=== PATIENT | female | born 1940 | race Caucasian/White ===

== ENCOUNTER 2016-11-24 14:18 | Outpatient (CLI) | payer MEDICARE, OTHER | END 2016-11-24 14:19 | disposition home or self-care (01) | DX: Z00.00 Encounter for general adult medical examination without abnormal findings (principal); E78.5 Hyperlipidemia, unspecified; E55.9 Vitamin D deficiency, unspecified ==

== ENCOUNTER 2016-12-19 17:52 | Observation (INO) | payer MEDICARE, OTHER ==
[2016-12-19] MEDS ORDERED: ALBUTEROL 8 GM INHALER INH STA (19:53)
[2016-12-19] MEDS ORDERED: ALBUTEROL 8 GM INHALER INH ONE (19:58)
[2016-12-19] MEDS ORDERED: SODIUM CHLORIDE 0.9% 1,000 ML IV ONE ×2 (20:00→21:00)
[2016-12-19] MEDS ORDERED: IPRATROPIUM/ALBUTEROL 3 ML NEB INH STA (20:18)
[2016-12-19] MEDS ORDERED: IPRATROPIUM/ALBUTEROL 3 ML NEB INH ONE (20:33)
[2016-12-19] MEDS ORDERED: diltiaZEM INJ 5 MG/ML VIAL IVP STA (21:23)
[2016-12-19] MEDS ORDERED: diltiaZEM INJ 5 MG/ML VIAL ONE (21:35)
[2016-12-19] MEDS ORDERED: ONDANSETRON 4 MG/2 ML VIAL IVP PRN (23:19)
[2016-12-19] MEDS ORDERED: ACETAMINOPHEN 325 MG TABLET PO PRN (23:19)
[2016-12-19] MEDS ORDERED: oxyCODONE 5 MG TABLET PO PRN (23:19)
[2016-12-19] MEDS ORDERED: ONDANSETRON ODT 4 MG TABLET TL PRN (23:19)
[2016-12-19] MEDS ORDERED: diltiaZEM INJ 5 MG/ML VIAL IVP PRN (23:28)
[2016-12-19] MEDS ORDERED: WARFARIN 5 MG TABLET PO SCH (23:45)
[2016-12-20] MEDS ORDERED: methylPREDNISolone SUCCINATE 40 MG/ML VIAL IVP SCH (03:00)
[2016-12-20] MEDS ORDERED: AZITHROMYCIN 250 MG TABLET PO SCH (04:00)
[2016-12-20] MEDS: SODIUM CHLORIDE FLUSH 0.9% 10 ML SYRINGE IVP PRN ×2 (04:02→21:15)
[2016-12-20] MEDS: SODIUM CHLORIDE FLUSH 0.9% 10 ML SYRINGE IVP SCH ×3 (06:03→21:03)
[2016-12-20] MEDS ORDERED: METOPROLOL SUCCINATE 25 MG TABLET PO SCH (09:00)
[2016-12-20] MEDS: METOPROLOL SUCCINATE 25 MG TABLET PO SCH (09:31)
[2016-12-20] MEDS: POLYETHYLENE GLYCOL 3350 17 GM PACKET PO SCH (09:31)
[2016-12-20] MEDS: MULTIVITAMIN 10 ML, THIAMINE INJ 100 MG, FOLIC ACID INJ 1 MG in SODIUM CHLORIDE 0.9% 1,... IV SCH (09:58)
[2016-12-20] MEDS ORDERED: MULTIVITAMIN 10 ML, FOLIC ACID INJ 1 MG, THIAMINE INJ 100 MG, MAGNESIUM SULFATE 2 GM in... IV SCH ×5 (10:00)
[2016-12-20] MEDS ORDERED: MAGNESIUM SULFATE 2 GRAM 50 ML IV ONE (12:00)
[2016-12-20] MEDS: methylPREDNISolone SUCCINATE 40 MG/ML VIAL IVP SCH ×2 (15:22→21:03)
[2016-12-20] MEDS: guaiFENesin/DEXTROMETHORPHAN 10 ML UDC PO PRN ×2 (16:24→23:58)
[2016-12-20] MEDS ORDERED: WARFARIN 5 MG TABLET PO SCH (20:00)
[2016-12-20] MEDS: BENZONATATE 100 MG CAPSULE PO PRN (21:02)
[2016-12-21] MEDS: SODIUM CHLORIDE FLUSH 0.9% 10 ML SYRINGE IVP SCH (06:00)
[2016-12-21] MEDS ORDERED: AZITHROMYCIN 250 MG TABLET PO SCH (09:00)
[2016-12-21] MEDS: MULTIVITAMIN 10 ML, THIAMINE INJ 100 MG, FOLIC ACID INJ 1 MG in SODIUM CHLORIDE 0.9% 1,... IV SCH (09:36)
[2016-12-21] MEDS: METOPROLOL SUCCINATE 25 MG TABLET PO SCH (09:52)
[2016-12-21] MEDS: POLYETHYLENE GLYCOL 3350 17 GM PACKET PO SCH (09:53)
[2016-12-21] MEDS: BENZONATATE 100 MG CAPSULE PO PRN (09:54)
[2016-12-21] MEDS: guaiFENesin/DEXTROMETHORPHAN 10 ML UDC PO PRN (12:25)
== END 2016-12-21 13:20 | disposition home or self-care (01) ==
DX: I48.91 Unspecified atrial fibrillation (principal); I10 Essential (primary) hypertension; F10.20 Alcohol dependence, uncomplicated; J06.9 Acute upper respiratory infection, unspecified; E87.1 Hypo-osmolality and hyponatremia; E87.8 Other disorders of electrolyte and fluid balance, not elsewhere classified; Y90.0 Blood alcohol level of less than 20 mg/100 ml
CPT/HCPCS: 36415; 71020; 80048; 80053; 81001; 83605; 83690; 83735; 83880; 84100; 84443; 84484; 85025; 85610; 86615; 87040; 87275; 87276; 87801; 93005; 93010; 93306; 94640; 96361; 96365; 96367; 96375; 96376; 99284; 99285; A9270; G0378; G0480; J3411; J7620

== ENCOUNTER 2016-12-23 13:55 | Outpatient (CLI) | payer MEDICARE, OTHER | END 2016-12-23 13:56 | disposition home or self-care (01) | DX: I48.91 Unspecified atrial fibrillation (principal) ==

== ENCOUNTER 2016-12-25 10:14 | Outpatient (CLI) | payer MEDICARE, OTHER | END 2016-12-25 10:15 | disposition home or self-care (01) | DX: I48.91 Unspecified atrial fibrillation (principal); E03.9 Hypothyroidism, unspecified ==

== ENCOUNTER 2016-12-25 14:46 | Outpatient (CLI) | payer MEDICARE, OTHER | END 2016-12-25 14:47 | disposition home or self-care (01) | DX: I48.91 Unspecified atrial fibrillation (principal) ==

== ENCOUNTER 2016-12-28 09:49 | Outpatient (CLI) | payer MEDICARE, OTHER | END 2016-12-28 09:50 | disposition home or self-care (01) | DX: I48.91 Unspecified atrial fibrillation (principal) ==

== ENCOUNTER 2016-12-31 11:32 | Outpatient (CLI) | payer MEDICARE, OTHER | END 2016-12-31 11:33 | disposition home or self-care (01) | DX: I48.91 Unspecified atrial fibrillation (principal) ==

== ENCOUNTER 2017-01-04 14:04 | Outpatient (CLI) | payer MEDICARE, OTHER | END 2017-01-04 14:05 | disposition home or self-care (01) | LOC: LAB.S 14:04 | PROVIDERS: ATTEND Nurse Practitioner Family | DX: I48.91 Unspecified atrial fibrillation (principal) | CPT/HCPCS: 85610 ==

== ENCOUNTER 2017-01-05 13:32 | Outpatient (CLI) | payer MEDICARE, OTHER | END 2017-01-05 13:33 | disposition home or self-care (01) | DX: R05 Cough (principal) ==

== ENCOUNTER 2017-01-06 10:30 | Outpatient (CLI) | payer MEDICARE, OTHER | END 2017-01-06 10:31 | disposition home or self-care (01) | DX: I48.91 Unspecified atrial fibrillation (principal); Z13.220 Encounter for screening for lipoid disorders ==

== ENCOUNTER 2017-01-07 11:21 | Outpatient (CLI) | payer MEDICARE, OTHER | END 2017-01-07 11:22 | disposition home or self-care (01) | DX: I48.91 Unspecified atrial fibrillation (principal) ==

== ENCOUNTER 2017-01-12 11:10 | Outpatient (CLI) | payer MEDICARE, OTHER | END 2017-01-12 11:11 | disposition home or self-care (01) | DX: I48.91 Unspecified atrial fibrillation (principal) ==

== ENCOUNTER 2017-01-21 15:01 | Outpatient (CLI) | payer MEDICARE, OTHER | END 2017-01-21 15:02 | disposition home or self-care (01) | DX: Z12.31 Encounter for screening mammogram for malignant neoplasm of breast (principal); Z80.3 Family history of malignant neoplasm of breast ==

== ENCOUNTER 2017-03-25 12:48 | Outpatient (CLI) | payer MEDICARE, OTHER ==
[2017-03-25 13:10] LABS: BASOPHILS % (AUTO) 0.9 %; EOSINOPHILS # (AUTO) 0.2 10^3/uL (0.0-0.7); HGB - HEMOGLOBIN 11.2 g/dL (12.0-16.0); LYMPHOCYTES # (AUTO) 1.7 10^3/uL (1.5-3.5); LYMPHOCYTES % (AUTO) 39.7 %; MEAN CORPUSCULAR HEMOGLOBIN 31.9 pg (27.0-31.0); MEAN PLATELET VOLUME 7.5 fL (7.9-10.8); MONOCYTES # (AUTO) 0.5 10^3/uL (0.0-1.0); MONOCYTES % (AUTO) 11.5 %; NEUTROPHILS # (AUTO) 1.9 10^3/uL (1.5-6.6); NEUTROPHILS % (AUTO) 43.9 %; RED BLOOD COUNT 3.51 10^6/uL (4.20-5.40); RED CELL DISTRIBUTION WIDTH 12.7 % (12.0-15.0); UNCORRECTED WHITE BLOOD COUNT 4.4 x10^3/uL; WHITE BLOOD COUNT 4.4 x10^3/uL (4.8-10.8)
[2017-03-25 13:17] LABS: CALCIUM 9.1 mg/dL (8.5-10.3); CREATININE 0.8 mg/dL (0.4-1.0); POTASSIUM 4.1 mmol/L (3.5-5.0)
[2017-03-25 13:25] LABS: INR 1.2 (0.8-1.2); PT - PROTHROMBIN TIME 13.4 secs (9.9-12.6)
== END 2017-03-25 12:49 | disposition home or self-care (01) ==
LOC: LAB 12:48
PROVIDERS: ATTEND Internal Medicine Cardiovascular Disease
DX: I50.9 Heart failure, unspecified (principal)
CPT/HCPCS: 36415; 80048; 85025; 85610

== ENCOUNTER 2017-04-01 11:08 | Outpatient (CLI) | payer MEDICARE, OTHER ==
[2017-04-01 17:58] LABS: CALCIUM 9.1 mg/dL (8.5-10.3); CREATININE 0.7 mg/dL (0.4-1.0); POTASSIUM 4.1 mmol/L (3.5-5.0)
== END 2017-04-01 11:09 | disposition home or self-care (01) ==
LOC: LAB.F 11:08
PROVIDERS: ATTEND Internal Medicine Cardiovascular Disease
DX: I48.0 Paroxysmal atrial fibrillation (principal)
CPT/HCPCS: 36415; 80048; 83880

== ENCOUNTER 2017-04-02 13:53 | Outpatient (CLI) | payer MEDICARE, OTHER ==
[2017-04-02 18:17] LABS: PT - PROTHROMBIN TIME 34.2 secs (9.9-12.6)
== END 2017-04-02 13:54 | disposition home or self-care (01) ==
LOC: LAB.F 13:53
PROVIDERS: ATTEND Internal Medicine Cardiovascular Disease
DX: I48.0 Paroxysmal atrial fibrillation (principal)
CPT/HCPCS: 36415; 85610

== ENCOUNTER 2017-04-14 08:00 | Outpatient (CLI) | payer MEDICARE, OTHER ==
[2017-04-14 12:39] LABS: INR 4.1 (0.8-1.2)
== END 2017-04-14 08:01 | disposition home or self-care (01) ==
LOC: LAB.F 08:00
PROVIDERS: ATTEND Internal Medicine Cardiovascular Disease
DX: I48.0 Paroxysmal atrial fibrillation (principal)
CPT/HCPCS: 36415; 85610

== ENCOUNTER 2017-04-21 11:07 | Outpatient (CLI) | payer MEDICARE, OTHER ==
[2017-04-21 18:36] LABS: INR 3.3 (0.8-1.2); PT - PROTHROMBIN TIME 37.9 secs (9.9-12.6)
== END 2017-04-21 11:08 | disposition home or self-care (01) ==
LOC: LAB.F 11:07
PROVIDERS: ATTEND Internal Medicine Cardiovascular Disease
DX: I48.0 Paroxysmal atrial fibrillation (principal)
CPT/HCPCS: 36415; 85610

== ENCOUNTER 2017-05-03 15:09 | Outpatient (CLI) | payer MEDICARE, OTHER ==
[2017-05-03 19:50] LABS: INR 3.3 (0.8-1.2); PT - PROTHROMBIN TIME 38.3 secs (9.9-12.6)
== END 2017-05-03 15:10 | disposition home or self-care (01) ==
LOC: LAB.F 15:09
PROVIDERS: ATTEND Internal Medicine Cardiovascular Disease
DX: I48.0 Paroxysmal atrial fibrillation (principal)
CPT/HCPCS: 36415; 85610

== ENCOUNTER 2017-05-20 11:13 | Outpatient (CLI) | payer MEDICARE, OTHER ==
[2017-05-20 18:19] LABS: INR 2.1 (0.8-1.2); PT - PROTHROMBIN TIME 24.1 secs (9.9-12.6)
== END 2017-05-20 11:14 | disposition home or self-care (01) ==
LOC: LAB.F 11:13
PROVIDERS: ATTEND Internal Medicine Cardiovascular Disease
DX: I48.0 Paroxysmal atrial fibrillation (principal)
CPT/HCPCS: 36415; 85610

== ENCOUNTER 2017-06-11 11:56 | Outpatient (CLI) | payer MEDICARE, OTHER ==
[2017-06-11 13:14] LABS: PT - PROTHROMBIN TIME 63.9 secs (9.9-12.6)
[2017-06-11 13:45] LABS: INR 5.6 (0.8-1.2)
== END 2017-06-11 11:57 | disposition home or self-care (01) ==
LOC: LAB 11:56
PROVIDERS: ATTEND Internal Medicine Cardiovascular Disease
DX: I48.0 Paroxysmal atrial fibrillation (principal)
CPT/HCPCS: 36415; 85610

== ENCOUNTER 2017-06-14 08:01 | Outpatient (CLI) | payer MEDICARE, OTHER ==
[2017-06-14 11:28] LABS: INR 1.6 (0.8-1.2); PT - PROTHROMBIN TIME 17.5 secs (9.9-12.6)
== END 2017-06-14 08:02 | disposition home or self-care (01) ==
LOC: LAB.F 08:01
PROVIDERS: ATTEND Internal Medicine Cardiovascular Disease
DX: I48.0 Paroxysmal atrial fibrillation (principal)
CPT/HCPCS: 36415; 85610

== ENCOUNTER 2017-06-22 09:41 | Outpatient (CLI) | payer MEDICARE, OTHER ==
[2017-06-22 18:16] LABS: INR 2.7 (0.8-1.2); PT - PROTHROMBIN TIME 31.3 secs (9.9-12.6)
== END 2017-06-22 09:42 | disposition home or self-care (01) ==
LOC: LAB.F 09:41
PROVIDERS: ATTEND Internal Medicine Cardiovascular Disease
DX: I48.0 Paroxysmal atrial fibrillation (principal)
CPT/HCPCS: 36415; 85610

== ENCOUNTER 2017-06-25 14:38 | Outpatient (CLI) | payer MEDICARE, OTHER ==
[2017-06-25 19:15] LABS: BASOPHILS % (AUTO) 0.7 %; EOSINOPHILS # (AUTO) 0.2 10^3/uL (0.0-0.7); EOSINOPHILS % (AUTO) 4.5 %; HCT - HEMATOCRIT 40.2 % (37.0-47.0); HGB - HEMOGLOBIN 13.3 g/dL (12.0-16.0); LYMPHOCYTES # (AUTO) 1.6 10^3/uL (1.5-3.5); LYMPHOCYTES % (AUTO) 32.9 %; MEAN CORPUSCULAR HEMOGLOBIN 30.8 pg (27.0-31.0); MEAN CORPUSCULAR VOLUME 93.4 fL (81.0-99.0); MEAN PLATELET VOLUME 7.8 fL (7.9-10.8); MONOCYTES # (AUTO) 0.4 10^3/uL (0.0-1.0); MONOCYTES % (AUTO) 8.7 %; NEUTROPHILS # (AUTO) 2.6 10^3/uL (1.5-6.6); NEUTROPHILS % (AUTO) 53.2 %; NUCLEATED RED BLOOD CELLS AUTO 0.1 /100WBC; RED BLOOD COUNT 4.31 10^6/uL (4.20-5.40); RED CELL DISTRIBUTION WIDTH 15.3 % (12.0-15.0); UNCORRECTED WHITE BLOOD COUNT 4.8 x10^3/uL; WHITE BLOOD COUNT 4.8 x10^3/uL (4.8-10.8)
[2017-06-25 20:01] LABS: ALBUMIN/GLOBULIN RATIO 1.7 (1.0-2.2); BILIRUBIN,TOTAL 0.8 mg/dL (0.2-1.0); BUN - BLOOD UREA NITROGEN 10 mg/dL (6-20); CALCIUM 9.5 mg/dL (8.5-10.3); CARBON DIOXIDE - CO2 31 mmol/L (21-32); CHLORIDE 92 mmol/L (101-111); CREATININE 0.6 mg/dL (0.4-1.0); GFR - MDRD 98 (>89); GLUCOSE 87 mg/dL (70-100); SODIUM 133 mmol/L (135-145); TOTAL PROTEIN 7.8 g/dL (6.7-8.2)
== END 2017-06-25 14:39 | disposition home or self-care (01) ==
LOC: LAB.F 14:38
PROVIDERS: ATTEND Internal Medicine
DX: I48.0 Paroxysmal atrial fibrillation (principal); L30.9 Dermatitis, unspecified; R60.0 Localized edema
CPT/HCPCS: 36415; 80053; 84443; 85025

== ENCOUNTER 2017-07-08 10:26 | Outpatient (CLI) | payer MEDICARE, OTHER ==
[2017-07-08 18:00] LABS: INR 1.8 (0.8-1.2); PT - PROTHROMBIN TIME 20.2 secs (9.9-12.6)
== END 2017-07-08 10:27 | disposition home or self-care (01) ==
LOC: LAB.F 10:26
PROVIDERS: ATTEND Internal Medicine Cardiovascular Disease
DX: I48.0 Paroxysmal atrial fibrillation (principal)
CPT/HCPCS: 36415; 85610

== ENCOUNTER 2017-07-20 14:46 | Outpatient (CLI) | payer MEDICARE, OTHER ==
[2017-07-20 15:28] LABS: INR 4.4 (0.8-1.2)
== END 2017-07-20 14:47 | disposition home or self-care (01) ==
LOC: LAB 14:46
PROVIDERS: ATTEND Internal Medicine Cardiovascular Disease
DX: I48.0 Paroxysmal atrial fibrillation (principal)
CPT/HCPCS: 36415; 85610

== ENCOUNTER 2017-07-27 13:09 | Outpatient (CLI) | payer MEDICARE, OTHER ==
[2017-07-27 13:30] LABS: INR 2.3 (0.8-1.2); PT - PROTHROMBIN TIME 26.3 secs (9.9-12.6)
== END 2017-07-27 13:10 | disposition home or self-care (01) ==
LOC: LAB 13:09
PROVIDERS: ATTEND Internal Medicine Cardiovascular Disease
DX: I48.0 Paroxysmal atrial fibrillation (principal)
CPT/HCPCS: 36415; 85610

== ENCOUNTER 2017-08-10 09:56 | Outpatient (CLI) | payer MEDICARE, OTHER ==
[2017-08-10 18:12] LABS: INR 2.2 (0.8-1.2); PT - PROTHROMBIN TIME 25.1 secs (9.9-12.6)
== END 2017-08-10 09:57 | disposition home or self-care (01) ==
LOC: LAB.F 09:56
PROVIDERS: ATTEND Internal Medicine Cardiovascular Disease
DX: I48.0 Paroxysmal atrial fibrillation (principal)
CPT/HCPCS: 36415; 85610

== ENCOUNTER 2017-09-23 13:54 | Outpatient (CLI) | payer MEDICARE, OTHER ==
[2017-09-23 18:25] LABS: INR 2.8 (0.8-1.2); PT - PROTHROMBIN TIME 29.9 secs (9.9-12.6)
== END 2017-09-23 13:55 | disposition home or self-care (01) ==
LOC: LAB.F 13:54
PROVIDERS: ATTEND Internal Medicine Cardiovascular Disease
DX: I48.0 Paroxysmal atrial fibrillation (principal)
CPT/HCPCS: 36415; 85610

== ENCOUNTER 2017-10-21 14:17 | Outpatient (CLI) | payer MEDICARE, OTHER ==
[2017-10-21 19:01] LABS: INR 2.2 (0.8-1.2)
== END 2017-10-21 14:18 | disposition home or self-care (01) ==
LOC: LAB.F 14:17
PROVIDERS: ATTEND Internal Medicine Cardiovascular Disease
DX: I48.0 Paroxysmal atrial fibrillation (principal)
CPT/HCPCS: 36415; 85610

== ENCOUNTER 2017-11-19 12:38 | Outpatient (CLI) | payer MEDICARE, OTHER ==
[2017-11-19 13:06] LABS: INR 1.8 (0.8-1.2); PT - PROTHROMBIN TIME 19.7 secs (9.9-12.6)
== END 2017-11-19 12:39 | disposition home or self-care (01) ==
LOC: LAB 12:38
PROVIDERS: ATTEND Internal Medicine Cardiovascular Disease
DX: I48.0 Paroxysmal atrial fibrillation (principal)
CPT/HCPCS: 36415; 85610

== ENCOUNTER 2017-12-10 13:26 | Outpatient (CLI) | payer MEDICARE, OTHER ==
[2017-12-10 14:29] LABS: INR 2.3 (0.8-1.2); PT - PROTHROMBIN TIME 25.3 secs (9.9-12.6)
== END 2017-12-10 13:27 | disposition home or self-care (01) ==
LOC: LAB 13:26
PROVIDERS: ATTEND Internal Medicine Cardiovascular Disease
DX: I48.0 Paroxysmal atrial fibrillation (principal)
CPT/HCPCS: 36415; 85610

== ENCOUNTER 2018-02-18 09:22 | Emergency (ER) | payer MEDICARE, OTHER ==
--- NOTE | 2018-02-18 10:20 | ED Physician Documentation ---
PD HPI UPPER EXT INJURY - Stated complaint Stated Complaint: RT WRIST INJ - Chief complaint Chief Complaint: Ext Problem - History obtained from History obtained from: Patient - History of Present Illness Location: Right, Wrist Type of injury: Fall (tripped and fell; no symptoms prior to the injury.) Timing - onset: Today Timing - details: Abrupt onset, Still present Worsened by: Moving, Palpating Associated symptoms: Swelling. 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 HEENT: Tonsil/Adenoidectomy - Present Medications Home Medications: Ambulatory Orders Medication Instructions Recorded Confirmed Metoprolol Succinate [Toprol Xl] 5 mg PO DAILY #10 tablet 12/21/16 HYDROcod/ACETAM 5/325 [Powell 5/325] 1 tab PO Q6H PRN #15 tablet 02/18/18 - Allergies Allergies/Adverse Reactions: Allergies Allergy/AdvReac Type Severity Reaction Status Date / Time No Known Drug Allergies Allergy Verified 02/18/18 10:25 - Social History Does the pt smoke?: No Smoking Status: Former smoker Does the pt drink ETOH?: Yes Does the pt have substance abuse?: No PD ED PE NORMAL - Vitals Vital signs reviewed: Yes - General General: Alert and oriented X 3, No acute distress, Well developed/nourished - HEENT HEENT: Atraumatic - Neck Neck: Supple, no meningeal sign, No bony TTP, No adenopathy - Cardiac Cardiac: RRR, No murmur - Respiratory Respiratory: Clear bilaterally, Other (no chestwall tenderness) - Abdomen Abdomen: Soft, Non tender - Back Back: No CVA TTP, No spinal TTP - Derm Derm: Normal color, Warm and dry - Neuro Neuro: Alert and oriented X 3, No motor deficit, No sensory deficit, Normal speech, Other Results - Vitals Vitals: Vital Signs - 24 hr 02/18/18 02/18/1818 10:06 10:54 12:14 Temperature 36.8 C 36.6 C 36.7 C Heart Rate 83 75 Respiratory 16 18 Rate Blood Pressure 148/95 H 184/82 H 148/86 H O2 Saturation 100 99 Oxygen O2 Source Room air Procedures - Splint (location) right wrist Splint applied by: Tech Type of splint: Fiberglass Other: Patient tolerated well, No complications, Neurovascular intact, Good alignment, Other PD MEDICAL DECISION MAKING - ED course Complexity details: reviewed results, re-evaluated patient, considered differential, d/w patient Departure - Departure Disposition: 01 Home, Self Care Clinical Impression: Accidental fall Qualifiers: Encounter type: initial encounter Qualified Code(s): W19.XXXA - Unspecified fall, initial encounter Fracture, Colles, right, closed Qualifiers: Encounter type: initial encounter Qualified Code(s): S52.531A - Colles' fracture of right radius, initial encounter for closed fracture Condition: Stable Record reviewed to determine appropriate education?: Yes Instructions: ED Fx Forearm Radius Ulna No Redu Requ Follow-Up: Akash Agee MD [Provider Admit Priv/Credential] - [facility] [Provider Group] Prescriptions: HYDROcod/ACETAM 5/325 [Powell 5/325] 1 tab PO Q6H PRN #15 tablet PRN Reason: Pain Comments: Keep the splint clean and dry. Elevate rest and ice your wrist often to reduce swelling. Today call the orthopedic office for an appointment for next week and follow up with them regarding changing from splint to cast and reevaluation. Use some ibuprofen or naproxen twice daily for the next several days. Add Tylenol or hydrocodone if needed for pain. Discharge Date/Time: 02/18/18 12:14
[2018-02-18] MEDS ORDERED: traMADol 50 MG TABLET PO STA (10:26)
[2018-02-18] MEDS ORDERED: KETOROLAC 60 MG/2 ML VIAL IM STA (10:26)
--- NOTE | 2018-02-18 10:58 | XRAY Report ---
EXAM: RIGHT WRIST RADIOGRAPHY EXAM DATE: 02/18/2018 10:41 AM. CLINICAL HISTORY: Fall. Pain and swelling. Trauma. COMPARISON: None. TECHNIQUE: 4 views. FINDINGS: Bones: Bones appear demineralized. Mildly impacted large transverse distal right radial fracture is s een. No significant angulation. Joints: Degenerative changes of the right wrist. No dislocation. Soft Tissues: Soft tissue swelling. IMPRESSION: 1. Mildly largely transverse distal right radius fracture. [facility] Referring Provider Line: [phone] SITE ID: [id number]
[2018-02-18 12:19] VITALS: BP 148/86
== END 2018-02-18 12:14 | disposition home or self-care (01) ==
LOC: ED 09:22
DX: S52.531A Colles' fracture of right radius, initial encounter for closed fracture (principal); W17.89XA Other fall from one level to another, initial encounter; Z87.891 Personal history of nicotine dependence
CPT/HCPCS: 29125; 73110; 96372; 99283; A9270

== ENCOUNTER 2018-11-03 19:19 | Outpatient (CLI) | payer MEDICARE, OTHER | END 2018-11-03 19:20 | disposition short-term general hospital (02) | LOC: EMS 19:19 | PROVIDERS: ATTEND Surgery | DX: R41.82 Altered mental status, unspecified (principal) | CPT/HCPCS: A0425; A0427 ==

== ENCOUNTER 2019-07-06 08:49 | Outpatient (CLI) | payer MEDICARE, OTHER ==
[2019-07-06 17:12] LABS: BASOPHILS % (AUTO) 0.5 %; EOSINOPHILS # (AUTO) 0.1 10^3/uL (0.0-0.7); EOSINOPHILS % (AUTO) 2.1 %; HGB - HEMOGLOBIN 10.4 g/dL (12.0-16.0); LYMPHOCYTES # (AUTO) 2.5 10^3/uL (1.5-3.5); LYMPHOCYTES % (AUTO) 42.7 %; MEAN CORPUSCULAR HEMOGLOBIN 28.5 pg (27.0-31.0); MEAN CORPUSCULAR HGB CONC 31.1 g/dL (32.0-36.0); MEAN CORPUSCULAR VOLUME 91.5 fL (81.0-99.0); MEAN PLATELET VOLUME 9.9 fL (7.9-10.8); MONOCYTES # (AUTO) 0.7 10^3/uL (0.0-1.0); MONOCYTES % (AUTO) 12.1 %; NEUTROPHILS # (AUTO) 2.5 10^3/uL (1.5-6.6); NEUTROPHILS % (AUTO) 42.4 %; PLT - PLATELET COUNT 249 10^3/uL (130-450); RED BLOOD COUNT 3.65 10^6/uL (4.20-5.40); RED CELL DISTRIBUTION WIDTH 14.1 % (12.0-15.0); WHITE BLOOD COUNT 5.8 x10^3/uL (4.8-10.8)
[2019-07-06 17:43] LABS: ALBUMIN 3.9 g/dL (3.2-5.5); ALBUMIN/GLOBULIN RATIO 1.4 (1.0-2.2); ALKALINE PHOSPHATASE 56 IU/L (42-121); ALT ALANINE AMINOTRANSFERASE 14 IU/L (10-60); AST ASPARTATE AMINOTRANSFERASE 23 IU/L (10-42); BILIRUBIN,TOTAL 0.7 mg/dL (0.2-1.0); BUN - BLOOD UREA NITROGEN 16 mg/dL (6-20); CALCIUM 9.4 mg/dL (8.5-10.3); CARBON DIOXIDE - CO2 28 mmol/L (21-32); CHLORIDE 102 mmol/L (101-111); CHOLESTEROL 270 mg/dL; CREATININE 0.8 mg/dL (0.4-1.0); GFR - MDRD 70 (>89); GLUCOSE 83 mg/dL (70-100); HDL CHOLESTEROL 90 mg/dL; SODIUM 137 mmol/L (135-145); TOTAL PROTEIN 6.7 g/dL (6.7-8.2)
== END 2019-07-06 08:50 | disposition home or self-care (01) ==
LOC: LAB.S 08:49
PROVIDERS: ATTEND Registered Nurse
DX: I10 Essential (primary) hypertension (principal); I48.91 Unspecified atrial fibrillation; E03.9 Hypothyroidism, unspecified
CPT/HCPCS: 36415; 80053; 80061; 83036; 83721; 84443; 85025

== ENCOUNTER 2020-03-12 08:00 | Outpatient (CLI) | payer MEDICARE, OTHER ==
--- NOTE | 2020-03-13 09:57 | XRAY Report ---
Reason: ASTHMA, COUGH Procedure Date: 03/12/2020 Accession Number: [id number] / [id number] Procedure: WCP - Chest 2 View X-Ray CPT Code: 73457 Final Report FULL RESULT: EXAM: CHEST RADIOGRAPHY 2 VIEWS EXAM DATE: 03/12/2020. CLINICAL HISTORY: Asthma. Cough. COMPARISON: PA and lateral chest on 01/05/2017. TECHNIQUE: PA and lateral views. FINDINGS: Lungs/Pleura: Normal vasculature. The lungs are clear. No pleural fluid or pneumothorax. Mediastinum: Heart size is normal. Aortic tortuosity and atherosclerosis are unchanged. Otherwise normal mediastinal contours. Bones: The partially visualized possible right humerus appears irregularly ossified. Plate attached with multiple screws to the proximal left humerus, unchanged. Mild scoliosis and multilevel degenerative disk disease and spondylosis. Healed right rib fractures. IMPRESSION: No acute cardiopulmonary abnormality. Possible lesion in the proximal right humerus, further evaluation could be initially obtained with right humerus radiography. [facility]
== END 2020-03-12 23:59 | disposition home or self-care (01) ==
LOC: DI.WCP 08:00
PROVIDERS: ATTEND Family Medicine
DX: J45.991 Cough variant asthma (principal)
CPT/HCPCS: 71046

== ENCOUNTER 2020-03-12 12:22 | Outpatient (CLI) | payer MEDICARE, OTHER ==
[2020-03-12 17:49] LABS: HGB - HEMOGLOBIN 11.2 g/dL (12.0-16.0); MEAN CORPUSCULAR HEMOGLOBIN 28.8 pg (27.0-31.0); MEAN CORPUSCULAR HGB CONC 31.2 g/dL (32.0-36.0); MEAN CORPUSCULAR VOLUME 92.3 fL (81.0-99.0); MEAN PLATELET VOLUME 9.8 fL (7.9-10.8); RED BLOOD COUNT 3.89 10^6/uL (4.20-5.40); RED CELL DISTRIBUTION WIDTH 13.7 % (12.0-15.0); WHITE BLOOD COUNT 4.4 x10^3/uL (4.8-10.8)
[2020-03-12 18:00] LABS: CALCIUM 9.2 mg/dL (8.5-10.3); CREATININE 0.7 mg/dL (0.4-1.0)
[2020-03-12 18:08] LABS: HB2 TOTAL 11.9 g/dL; HEMOGLOBIN A1C 0.43 g/dL; HEMOGLOBIN A1C % 5.5 % (4.6-6.2)
== END 2020-03-12 23:59 | disposition home or self-care (01) ==
LOC: LAB.WCP 12:22
PROVIDERS: ATTEND Registered Nurse
DX: J45.991 Cough variant asthma (principal); Z79.899 Other long term (current) drug therapy; R06.02 Shortness of breath; I11.0 Hypertensive heart disease with heart failure; I50.20 Unspecified systolic (congestive) heart failure; I48.91 Unspecified atrial fibrillation; E03.9 Hypothyroidism, unspecified
CPT/HCPCS: 36415; 80048; 83036; 83880; 85025; 85027

== ENCOUNTER 2020-07-23 14:44 | Outpatient (CLI) | payer MEDICARE, OTHER ==
[2020-07-23 20:26] LABS: % IRON SATURATION 10 % (20-50); ALBUMIN 3.6 g/dL (3.2-5.5); ALBUMIN/GLOBULIN RATIO 1.2 (1.0-2.2); ALKALINE PHOSPHATASE 64 IU/L (42-121); ALT ALANINE AMINOTRANSFERASE 16 IU/L (10-60); AST ASPARTATE AMINOTRANSFERASE 27 IU/L (10-42); BILIRUBIN,TOTAL 0.5 mg/dL (0.2-1.0); BUN - BLOOD UREA NITROGEN 13 mg/dL (6-20); CALCIUM 8.9 mg/dL (8.5-10.3); CARBON DIOXIDE - CO2 30 mmol/L (21-32); CHLORIDE 97 mmol/L (101-111); CREATININE 0.8 mg/dL (0.4-1.0); GLUCOSE 90 mg/dL (70-100); IRON 34 ug/dL (28-170); SODIUM 135 mmol/L (135-145); TOTAL IRON BINDING CAPACITY 335 ug/dL (250-450); TOTAL PROTEIN 6.5 g/dL (6.7-8.2); TRANSFERRIN 239 mg/dL (192-382)
[2020-07-23 20:28] LABS: RHEUMATOID FACTOR NEGATIVE (Negative)
[2020-07-23 20:58] LABS: CRP - C-REACTIVE PROTEIN < 1.0 mg/dL (0-1.0)
== END 2020-07-23 14:45 | disposition home or self-care (01) ==
LOC: LAB.S 14:44
PROVIDERS: ATTEND Registered Nurse
DX: D64.9 Anemia, unspecified (principal); M25.50 Pain in unspecified joint
CPT/HCPCS: 36415; 80053; 82728; 83540; 84466; 85651; 86038; 86140; 86430

== ENCOUNTER 2022-03-05 08:40 | Outpatient (CLI) | payer MEDICARE, OTHER ==
[2022-03-05 14:43] LABS: ESTIMATED AVERAGE GLUCOSE 117 mg/dL (70-100); HEMOGLOBIN A1c% 5.7 % (4.27-6.07)
[2022-03-05 14:46] LABS: BASOPHILS # (AUTO) 0.1 10^3/uL (0.0-0.1); BASOPHILS % (AUTO) 1.2 %; EOSINOPHILS # (AUTO) 0.8 10^3/uL (0.0-0.7); EOSINOPHILS % (AUTO) 15.4 %; HCT - HEMATOCRIT 35.3 % (37.0-47.0); HGB - HEMOGLOBIN 11.5 g/dL (12.0-16.0); LYMPHOCYTES # (AUTO) 1.9 10^3/uL (1.5-3.5); LYMPHOCYTES % (AUTO) 39.3 %; MEAN CORPUSCULAR HEMOGLOBIN 31.6 pg (27.0-31.0); MEAN CORPUSCULAR HGB CONC 32.6 g/dL (32.0-36.0); MEAN PLATELET VOLUME 9.7 fL (7.9-10.8); MONOCYTES # (AUTO) 0.5 10^3/uL (0.0-1.0); MONOCYTES % (AUTO) 10.3 %; NEUTROPHILS # (AUTO) 1.7 10^3/uL (1.5-6.6); NEUTROPHILS % (AUTO) 33.6 %; PLT - PLATELET COUNT 267 10^3/uL (130-450); RED BLOOD COUNT 3.64 10^6/uL (4.20-5.40); WHITE BLOOD COUNT 4.9 x10^3/uL (4.8-10.8)
[2022-03-05 16:29] LABS: ALBUMIN 3.8 g/dL (3.2-5.5); ALBUMIN/GLOBULIN RATIO 1.5 (1.0-2.2); ALKALINE PHOSPHATASE 68 IU/L (42-121); ALT ALANINE AMINOTRANSFERASE 15 IU/L (10-60); AST ASPARTATE AMINOTRANSFERASE 23 IU/L (10-42); BILIRUBIN,TOTAL 0.5 mg/dL (0.2-1.0); BUN - BLOOD UREA NITROGEN 20 mg/dL (6-20); CALCIUM 8.9 mg/dL (8.5-10.3); CARBON DIOXIDE - CO2 30 mmol/L (21-32); CHLORIDE 96 mmol/L (101-111); CHOL/HDL RATIO 2.4 (<4.4); CHOLESTEROL 244 mg/dL; CREATININE 0.8 mg/dL (0.4-1.0); GFR - MDRD 69 (>89); GLUCOSE 75 mg/dL (70-100); HDL CHOLESTEROL 102 mg/dL; POTASSIUM 4.3 mmol/L (3.5-5.0); SODIUM 133 mmol/L (135-145); TOTAL PROTEIN 6.4 g/dL (6.7-8.2); TRIGLYCERIDES 32 mg/dL
[2022-03-07 16:08] LABS: HCV IU/ML HCV Not Detected IU/mL (.)
== END 2022-03-05 08:41 | disposition home or self-care (01) ==
LOC: LAB.S 08:40
PROVIDERS: ATTEND Internal Medicine
DX: I27.20 Pulmonary hypertension, unspecified (principal); I10 Essential (primary) hypertension; Z13.1 Encounter for screening for diabetes mellitus; Z13.220 Encounter for screening for lipoid disorders; Z11.59 Encounter for screening for other viral diseases
CPT/HCPCS: 36415; 80053; 80061; 83036; 83721; 84443; 85025; 87522

== ENCOUNTER 2023-10-15 14:52 | Outpatient (CLI) | payer MEDICARE, OTHER ==
[2023-10-15 20:12] LABS: BASOPHILS # (AUTO) 0.1 10^3/uL (0.0-0.1); BASOPHILS % (AUTO) 0.8 %; EOSINOPHILS # (AUTO) 0.6 10^3/uL (0.0-0.7); EOSINOPHILS % (AUTO) 10.5 %; HCT - HEMATOCRIT 38.7 % (37.0-47.0); HGB - HEMOGLOBIN 12.3 g/dL (12.0-16.0); LYMPHOCYTES # (AUTO) 2.4 10^3/uL (1.5-3.5); LYMPHOCYTES % (AUTO) 39.9 %; MEAN CORPUSCULAR HEMOGLOBIN 30.5 pg (27.0-31.0); MEAN CORPUSCULAR HGB CONC 31.8 g/dL (32.0-36.0); MEAN PLATELET VOLUME 9.5 fL (7.9-10.8); MONOCYTES # (AUTO) 0.5 10^3/uL (0.0-1.0); MONOCYTES % (AUTO) 9.1 %; NEUTROPHILS # (AUTO) 2.3 10^3/uL (1.5-6.6); NEUTROPHILS % (AUTO) 39.5 %; PLT - PLATELET COUNT 275 10^3/uL (130-450); RED BLOOD COUNT 4.03 10^6/uL (4.20-5.40); WHITE BLOOD COUNT 5.9 x10^3/uL (4.8-10.8)
[2023-10-15 20:55] LABS: THYROID STIMULATING HORMONE 1.17 uIU/mL (0.34-5.60)
[2023-10-15 21:30] LABS: CALCIUM 9.6 mg/dL (8.5-10.3); CREATININE 0.8 mg/dL (0.6-1.3); POTASSIUM 4.3 mmol/L (3.5-4.5)
== END 2023-10-15 14:53 | disposition home or self-care (01) ==
LOC: LAB.S 14:52
PROVIDERS: ATTEND Internal Medicine Cardiovascular Disease
DX: I48.0 Paroxysmal atrial fibrillation (principal)
CPT/HCPCS: 36415; 80048; 84443; 85025

== ENCOUNTER 2023-12-03 13:39 | Outpatient (CLI) | payer MEDICARE, OTHER | END 2023-12-03 13:40 | disposition home or self-care (01) | LOC: DI 13:39 | PROVIDERS: ATTEND Internal Medicine | DX: I48.91 Unspecified atrial fibrillation (principal); I08.1 Rheumatic disorders of both mitral and tricuspid valves | CPT/HCPCS: 93307 ==

== ENCOUNTER 2024-01-10 13:38 | Emergency (ER) | payer MEDICARE, OTHER ==
[2024-01-10 14:25] LABS: BASOPHILS % (AUTO) 0.7 %; EOSINOPHILS # (AUTO) 0.2 10^3/uL (0.0-0.7); HCT - HEMATOCRIT 36.4 % (37.0-47.0); HGB - HEMOGLOBIN 12.2 g/dL (12.0-16.0); LYMPHOCYTES # (AUTO) 1.4 10^3/uL (1.5-3.5); LYMPHOCYTES % (AUTO) 23.6 %; MEAN CORPUSCULAR HEMOGLOBIN 31.8 pg (27.0-31.0); MEAN CORPUSCULAR HGB CONC 33.5 g/dL (32.0-36.0); MEAN CORPUSCULAR VOLUME 94.8 fL (81.0-99.0); MEAN PLATELET VOLUME 8.8 fL (7.9-10.8); MONOCYTES # (AUTO) 0.6 10^3/uL (0.0-1.0); MONOCYTES % (AUTO) 9.8 %; NEUTROPHILS # (AUTO) 3.6 10^3/uL (1.5-6.6); NEUTROPHILS % (AUTO) 62.5 %; PLT - PLATELET COUNT 242 10^3/uL (130-450); RED BLOOD COUNT 3.84 10^6/uL (4.20-5.40); RED CELL DISTRIBUTION WIDTH 13.1 % (12.0-15.0); WHITE BLOOD COUNT 5.7 x10^3/uL (4.8-10.8)
--- NOTE | 2024-01-10 14:32 | XRAY Report ---
PROCEDURE: Chest 1V INDICATIONS: weakness TECHNIQUE: One view of the chest was acquired. COMPARISON: None. FINDINGS: Surgical changes and devices: Left humerus ORIF. Lungs and pleura: No pleural effusions or pneumothorax. Lungs are clear. Mediastinum: Mediastinal contours appear normal. Heart size is normal. Bones and chest wall: No suspicious bony lesions. Overlying soft tissues appear unremarkable. IMPRESSION: No acute cardiopulmonary process. Reviewed by: Aly Ma MD on 01/10/2024 2:30 PM PDT Approved by: Aly Ma MD on 01/10/2024 2:30 PM PDT Station ID: [id number]
[2024-01-10] MEDS: SODIUM CHLORIDE 0.9% 500 ML IV STA ×2 (14:40→15:56)
[2024-01-10 14:41] LABS: BILIRUBIN,URINE SMALL (NEGATIVE); GLUCOSE, URINE (UA) NEGATIVE (NEGATIVE); KETONES,URINE (UA) NEGATIVE (NEGATIVE); LEUKOCYTE ESTERASE, URINE TRACE (NEGATIVE); NITRITE,URINE POSITIVE (NEGATIVE); OCCULT BLOOD,URINE NEGATIVE (NEGATIVE); PROTEIN,URINE NEGATIVE (NEGATIVE); UROBILINOGEN,URINE 0.2 (NORMAL) E.U./dL (NORMAL)
[2024-01-10 14:41] LABS: ALBUMIN 4.2 g/dL (3.2-5.5); ALBUMIN/GLOBULIN RATIO 1.6 (1.0-2.2); BILIRUBIN,TOTAL 1.3 mg/dL (0.2-1.0); CALCIUM 9.5 mg/dL (8.5-10.3); CREATININE 0.7 mg/dL (0.6-1.3); POTASSIUM 4.3 mmol/L (3.5-4.5); TOTAL PROTEIN 6.8 g/dL (6.4-8.9)
[2024-01-10 14:44] LABS: CLARITY,URINE CLEAR (CLEAR)
[2024-01-10 14:45] LABS: TROPONIN I HIGH SENSITIVITY 9.6 ng/L (2.3-14.8)
[2024-01-10 15:01] LABS: BACTERIA,URINE Few /HPF (None Seen); SQUAMOUS EPITHELIAL CELL,UR MOD Squamous (<= Few)
--- NOTE | 2024-01-10 15:21 | ED Physician Documentation ---
History of Present Illness - Stated complaint Stated Complaint: GLF - Chief complaint Chief Complaint: Trauma Hd/Nk - History obtained from History obtained from: Patient, Family - Additonal information Additional information: Patient is an 83-year-old female presenting for evaluation of generalized weakness and a fall at home. Patient states she felt lightheaded and weak yesterday and fell down to the ground. She does not believe she hit her head or had LOC. She was unable to get off the ground for 6 to 8 hours until a family member came to check on her in the evening. Family member took her home with her fed her. This morning they report that she seemed weak so presented to the emergency department. Patient denies any complaints of pain.Denies chest pain, shortness of air, recent illness, dysuria.Patient is on Eliquis. Review of Systems Constitutional: denies: Fever Cardiac: denies: Chest pain / pressure Respiratory: denies: Dyspnea, Cough GI: denies: Abdominal Pain, Vomiting : denies: Dysuria Neurologic: reports: Generalized weakness. 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 HEENT: Tonsil/Adenoidectomy - Present Medications Home Medications: Ambulatory Orders Medication Instructions Recorded Confirmed Metoprolol Succinate [Toprol Xl] 5 mg PO DAILY #10 tablet 12/21/16 01/10/24 Furosemide 1 - 2 tab PO DAILY 03/02/19 01/10/24 Potassium Chloride 1 tab PO DAILY 03/02/19 01/10/24 Apixaban [Eliquis] 2.5 mg PO BID 01/10/24 01/10/24 Nitrofurantoin [Macrobid] 1 cap PO BID #10 cap 01/10/24 - Allergies Allergies/Adverse Reactions: Allergies Allergy/AdvReac Type Severity Reaction Status Date / Time Penicillins Allergy Rash Verified 01/10/24 13:52 - Social History Does the pt smoke?: No Smoking Status: Never smoker Does the pt drink ETOH?: Yes Does the pt have substance abuse?: No - Immunizations Immunizations are current?: Yes PD ED PE NORMAL - General General: Alert and oriented X 3, No acute distress, Well developed/nourished - HEENT HEENT: Atraumatic, PERRL, EOMI, Moist mucous membranes, Pharynx benign - Neck Neck: Supple, no meningeal sign - Cardiac Cardiac: RRR, Strong equal pulses - Respiratory Respiratory: No respiratory distress, Clear bilaterally - Abdomen Abdomen: Soft, Non tender - Derm Derm: Warm and dry - Neuro Neuro: Alert and oriented X 3, corporate staff accountant 2-12 intact, No motor deficit, No sensory de ficit, Normal speech Eye Opening: Spontaneous Motor: Obeys Commands Verbal: Oriented GCS Score: 15 Results - Vitals Vitals: Vital Signs - 24 hr 01/10/24 01/10/24 01/10/24 13:48 15:52 16:00 Temperature 36.3 C L Heart Rate 73 79 84 Respiratory 14 20 18 Rate Blood Pressure 140/105 H 140/91 H O2 Saturation 99 98 98 01/10/24 17:52 Temperature 36.7 C Heart Rate 67 Respiratory 16 Rate Blood Pressure 168/100 H O2 Saturation 97 Oxygen O2 Source Room air - EKG (time done) 1449 EKG releavant findings:: EKG personally interpreted by author of this note. Relevant findings are: Rate 64, normal sinus rhythm, no STEMI, QTc 430 - Labs Labs: Laboratory Tests 01/10/24 01/10/24 01/10/24 14:18 14:18 14:30 WBC 5.7 RBC 3.84 L Hgb 12.2 Hct 36.4 L MCV 94.8 MCH 31.8 H MCHC 33.5 RDW 13.1 Plt Count 242 MPV 8.8 Neut # (Auto) 3.6 Lymph # (Auto) 1.4 L Grayson # (Auto) 0.6 Eos # (Auto) 0.2 Baso # (Auto) 0.0 Absolute Nucleated RBC 0.00 Nucleated RBC % 0.0 Sodium 130 L Potassium 4.3 Chloride 93 L Carbon Dioxide 29 Anion Gap 8.0 BUN 19 Creatinine 0.7 Estimated GFR (MDRD) 80 L Glucose 98 Calcium 9.5 Total Bilirubin 1.3 H AST 31 ALT 17 Alkaline Phosphatase 60 Total Creatine Kinase 419 H Troponin I High Sens 9.6 Total Protein 6.8 Albumin 4.2 Globulin 2.6 Albumin/Globulin Ratio 1.6 Lipase 47 Urine Color DARK YELLOW Urine Clarity CLEAR Urine pH 6.0 Ur Specific Newcomb 1.015 Urine Protein NEGATIVE Urine Glucose (UA) NEGATIVE Urine Ketones NEGATIVE Urine Occult Blood NEGATIVE Urine Nitrite POSITIVE H Urine Bilirubin SMALL H Urine Urobilinogen 0.2 (NORMAL) Ur Leukocyte Esterase TRACE H Urine RBC 6-10 H Urine WBC 11-25 H Ur Squamous Epith Cells MOD Squamous H Urine Bacteria Few Ur Microscopic Review INDICATED Urine Culture Comments NOT INDICATED PD Medical Decision Making - ED course Complexity details: reviewed results, re-evaluated patient, d/w patient, d/w family ED course: Pt with fall at home yesterday with prolonged time on ground. On blood thinners. Denies localized pain but feeling weak. CT head negative for bleed. EKG reviewed. CBC, chemistries, troponin, UA. Labs - Na 130, Cl 93, CK 419. Given IV fluid for dehydration. UA with some markers for infection - will culture and treat given weakness and age. Chest XR without signs of pneumonia. Pt feeling at baseline here and ambulatory at baseline. Daughter with patient and comfortable with plan for discharge. Aware of need for follow up with PCP. Departure - Departure Disposition: Home, Self Care Clinical Impression: Weakness, UTI (urinary tract infection), Fall at home, Dehydration Condition: Stable Instructions: ED UTI Cystitis Female, ED Weakness UKO Prescriptions: Nitrofurantoin [Macrobid] 1 cap PO BID #10 cap Comments: Your testing today shows of dehydration as well as concerns for UTI. I have sent a prescription for an antibiotic to [facility] in [place]. Have given you the first dose this evening and you can excelsior picker this prescription in the morning. Please continue to stay hydrated. You may want to consider a safety system at home such as life alert or having a security camera inside so family members can check on you In case you ever have another fall and are unable to get up. Return to the emergency department with any new or worsening symptoms. Forms: PCP List Discharge Date/Time: 01/10/24 18:02
--- NOTE | 2024-01-10 16:41 | CT Report ---
PROCEDURE: Head WO INDICATIONS: fall on eliquis TECHNIQUE: Noncontrast 4.5 mm thick angled axial sections acquired from the foramen magnum to the vertex. For r adiation dose reduction, the following was used: automated exposure control, adjustment of mA and/or kV according to patient size. COMPARISON: None. FINDINGS: Image quality: Excellent. CSF spaces: Basal cisterns are patent. No extra-axial fluid collections. Ventricles are normal in size and shape. Brain: No midline shift. No intracranial masses or hemorrhage. Moore-white matter interface is norm al. Intracranial carotid calcifications. Age-related volume loss and small vessel ischemic change. Skull and face: Calvarium and visualized facial bones are intact, without suspicious lesions. Sinuses: Visualized sinuses and mastoids are clear. IMPRESSION: No acute intracranial pathology. Reviewed by: Sonny Fitzpatrick MD on 01/10/2024 4:39 PM PDT Approved by: Sonny Fitzpatrick MD on 01/10/2024 4:39 PM PDT Station ID: [id number]
[2024-01-10] MEDS: NITROFURANTOIN MACRO 100 MG CAPSULE PO STA (17:45)
[2024-01-10 17:56] VITALS: BP 168/100; O2SAT 97
== END 2024-01-10 18:02 | disposition home or self-care (01) ==
LOC: ED 13:38
DX: R53.1 Weakness (principal); R42 Dizziness and giddiness; W18.39XA Other fall on same level, initial encounter; E86.0 Dehydration; Z79.01 Long term (current) use of anticoagulants; Z91.81 History of falling; N39.0 Urinary tract infection, site not specified
CPT/HCPCS: 36415; 70450; 71045; 80053; 81001; 82550; 83690; 84484; 85025; 87086; 87181; 93005; 96360; 96361; 99284; A9270; 81003

== ENCOUNTER 2024-04-07 13:18 | Outpatient (CLI) | payer MEDICARE, OTHER | END 2024-04-07 23:59 | disposition EMS.NT | LOC: EMS 13:18 | DX: M79.652 Pain in left thigh (principal); W01.0XXA Fall on same level from slipping, tripping and stumbling without subsequent striking against object, initial encounter; Y92.009 Unspecified place in unspecified non-institutional (private) residence as the place of occurrence of the external cause ==

== ENCOUNTER 2024-04-07 14:33 | Emergency (ER) | payer MEDICARE, OTHER ==
--- NOTE | 2024-04-07 15:11 | ED Physician Documentation ---
History of Present Illness - Stated complaint Stated Complaint: GLF/LT LEG PX - Chief complaint Chief Complaint: Trauma Hd/Nk - History obtained from History obtained from: Patient, Family - Additonal information Additional information: She is on elquis for afib. Fell v early this AM, "trying to sit down in a chair, and it wasn't there." C/o L hip/femur pain. Can't walk Was on ground >12 hours. Thnks no head inj but isn't sure. PD PAST MEDICAL HISTORY - Past Medical History Cardiovascular: Congestive heart failure, Hypertension, Peripheral Vascular Disease, Atrial fibrillation Respiratory: Asthma Endocrine/Autoimmune: HyPOthyroidism GI: None, Chronic constipation : Frequency HEENT: None Psych: Anxiety Musculoskeletal: Other Derm: Other - Past Surgical History Past Surgical History: Yes General: Colonoscopy Ortho: Hip replacement, Shoulder arthroplasty /IRONWORKER FOREMAN: Hysterectomy HEENT: Tonsil/Adenoidectomy - Present Medications Home Medications: Ambulatory Orders Medication Instructions Recorded Confirmed Metoprolol Succinate [Toprol Xl] 5 mg PO DAILY #10 tablet 12/21/16 01/10/24 Furosemide 1 - 2 tab PO DAILY 03/02/19 01/10/24 Potassium Chloride 1 tab PO DAILY 03/02/19 01/10/24 Apixaban [Eliquis] 2.5 mg PO BID 01/10/24 01/10/24 Nitrofurantoin [Macrobid] 1 cap PO BID #10 cap 01/10/24 - Allergies Allergies/Adverse Reactions: Allergies Allergy/AdvReac Type Severity Reaction Status Date / Time Penicillins Allergy Rash Verified 04/07/24 14:50 - Social History Does the pt smoke?: No Smoking Status: Never smoker Does the pt drink ETOH?: Yes Does the pt have substance abuse?: No - Immunizations Immunizations are current?: Yes PD ED PE NORMAL - Vitals Vital signs reviewed: Yes - General General: Alert and oriented X 3, No acute distress - HEENT HEENT: PERRL - Neck Neck: Supple, no meningeal sign, No bony TTP - Cardiac Cardiac: RRR, No murmur - Respiratory Respiratory: No respiratory distress, Clear bilaterally - Abdomen Abdomen: Non tender - Derm Derm: Normal color, Warm and dry - Extremities Extremities: Other (TTP upper left femur, pain with ext rotation LLE. Can't raise leg off bed.) - Neuro Neuro: Alert and oriented X 3 Results - Vitals Vitals: Vital Signs - 24 hr 04/07/24 04/07/24 14:47 16:49 Temperature 36.6 C Heart Rate 71 92 Respiratory 16 21 Rate Blood Pressure 185/84 H 154/73 H O2 Saturation 99 100 Oxygen O2 Source Room air - Labs Labs: Laboratory Tests 04/07/24 04/07/24 04/07/24 15:24 15:24 15:24 WBC 6.7 RBC 3.72 L Hgb 11.6 L Hct 35.3 L MCV 94.9 MCH 31.2 H MCHC 32.9 RDW 12.4 Plt Count 222 MPV 9.2 Neut # (Auto) 4.8 Lymph # (Auto) 1.1 L [place] # (Auto) 0.7 Eos # (Auto) 0.1 Baso # (Auto) 0.0 Absolute Nucleated RBC 0.00 Nucleated RBC % 0.0 PT 11.6 INR 1.0 Sodium 126 L Potassium 4.2 Chloride 92 L Carbon Dioxide 29 Anion Gap 5.0 L BUN 16 Creatinine 0.6 Estimated GFR (MDRD) 96 Glucose 83 Calcium 9.3 Total Bilirubin 0.8 AST 28 ALT 14 Alkaline Phosphatase 70 Total Creatine Kinase 487 H Total Protein 6.8 Albumin 4.4 Globulin 2.4 Albumin/Globulin Ratio 1.8 - Rads (name of study) CT of the head and C-spine were without trauma. Relevant Findings:: Final report received, EMP independent interpretation of test L Hip XR Relevant Findings:: Final report received, EMP independent interpretation of test L hip ct- Relevant Findings:: Final report received, EMP independent interpretation of test PD Medical Decision Making - ED course ED course: 83-year-old woman on Eliquis for A-fib had a fall and has left hip pain. Left hip x-rays were negative, and this was followed by CT which demonstrated a nondisplaced fracture of the greater trochanter. Case discussed by phone with Dr. Hanley and confirms this is a nonoperative finding. She is not able to ambulate and her daughter does not think she can care for her at home so we will likely be boarding pending social work and placement. She wants to take her home meds for the most part. She did lay on the floor for quite some time, has a mild elevation in her CK. We will recheck it in the morning. She did receive 1 L of IV fluids for that. Departure - Departure Clinical Impression: Greater trochanter fracture Qualifiers: Encounter type: initial encounter Fracture type: closed Fracture alignment: nondisplaced Laterality: left Qualified Code(s): S72.115A - Nondisplaced fracture of greater trochanter of left femur, initial encounter for closed fracture Condition: Stable Record reviewed to determine appropriate education?: Yes Forms: PCP List
[2024-04-07 15:32] LABS: BASOPHILS % (AUTO) 0.4 %; EOSINOPHILS # (AUTO) 0.1 10^3/uL (0.0-0.7); EOSINOPHILS % (AUTO) 0.9 %; HCT - HEMATOCRIT 35.3 % (37.0-47.0); HGB - HEMOGLOBIN 11.6 g/dL (12.0-16.0); LYMPHOCYTES # (AUTO) 1.1 10^3/uL (1.5-3.5); LYMPHOCYTES % (AUTO) 16.7 %; MEAN CORPUSCULAR HEMOGLOBIN 31.2 pg (27.0-31.0); MEAN CORPUSCULAR HGB CONC 32.9 g/dL (32.0-36.0); MEAN CORPUSCULAR VOLUME 94.9 fL (81.0-99.0); MEAN PLATELET VOLUME 9.2 fL (7.9-10.8); MONOCYTES # (AUTO) 0.7 10^3/uL (0.0-1.0); MONOCYTES % (AUTO) 9.7 %; NEUTROPHILS # (AUTO) 4.8 10^3/uL (1.5-6.6); PLT - PLATELET COUNT 222 10^3/uL (130-450); RED BLOOD COUNT 3.72 10^6/uL (4.20-5.40); RED CELL DISTRIBUTION WIDTH 12.4 % (12.0-15.0); WHITE BLOOD COUNT 6.7 x10^3/uL (4.8-10.8)
[2024-04-07] MEDS: ACETAMINOPHEN 500 MG TABLET PO STA (15:41)
[2024-04-07 15:44] LABS: ALBUMIN 4.4 g/dL (3.2-5.5); ALBUMIN/GLOBULIN RATIO 1.8 (1.0-2.2); BILIRUBIN,TOTAL 0.8 mg/dL (0.2-1.0); CALCIUM 9.3 mg/dL (8.5-10.3); CREATININE 0.6 mg/dL (0.6-1.3); POTASSIUM 4.2 mmol/L (3.5-4.5); TOTAL PROTEIN 6.8 g/dL (6.4-8.9)
--- NOTE | 2024-04-07 15:45 | CT Report ---
PROCEDURE: Head WO INDICATIONS: head inj TECHNIQUE: Noncontrast 4.5 mm thick angled axial sections acquired from the foramen magnum to the vertex. For r adiation dose reduction, the following was used: automated exposure control, adjustment of mA and/or kV according to patient size. COMPARISON: 01/10/2024 FINDINGS: Image quality: Excellent. CSF spaces: Basal cisterns are patent. No extra-axial fluid collections. The ventricles are symmet edmond in size and shape. Brain: No intracranial bleeds or masses. There is cerebral volume loss for age, with resultant vent ricular and sulcal prominence. There are periventricular and deep white matter chronic small vessel ischemic changes. There is intracranial internal carotid artery atherosclerosis. Skull and face: Calvarium and visualized facial bones appear intact, without suspicious lesions. Sinuses: Visualized sinuses and mastoids are clear. IMPRESSION: No acute intracranial pathology. No significant changes from previous study. Reviewed by: Gigi Alves MD on 04/07/2024 3:43 PM PDT Approved by: Gigi Alves MD on 04/07/2024 3:43 PM PDT Station ID: [id number]
--- NOTE | 2024-04-07 15:48 | CT Report ---
PROCEDURE: Cervical Spine WO INDICATIONS: head inj TECHNIQUE: Noncontrast 3 mm thick sections acquired from the skull base to the T4 level. Sagittal and coronal r eformats were then constructed. For radiation dose reduction, the following was used: automated exp osure control, adjustment of mA and/or kV according to patient size. COMPARISON: None. FINDINGS: Image quality: Excellent. Bones: No fractures or dislocations. Loss of disc height, degenerative endplate changes and bilatera l uncovertebral hypertrophic changes are noted throughout cervical spine causing mild central canal s tenosis and bilateral neural foraminal narrowing. Visualized superior ribs are intact. Soft tissues: Prevertebral soft tissues are normal in thickness. No paravertebral hematomas. No ap ical pneumothoraces. IMPRESSION: 1. No acute cervical spine fracture or dislocation. 2. Degenerative disc disease throughout cervical spine. Reviewed by: Gigi Alves MD on 04/07/2024 3:47 PM PDT Approved by: Gigi Alves MD on 04/07/2024 3:47 PM PDT Station ID: [id number]
[2024-04-07 15:58] LABS: PT - PROTHROMBIN TIME 11.6 secs (9.9-12.6)
[2024-04-07] MEDS: SODIUM CHLORIDE 0.9% 1,000 ML IV STA (16:05)
--- NOTE | 2024-04-07 16:18 | XRAY Report ---
PROCEDURE: Hip w/Pelvis 2-3V LT INDICATIONS: hip/leg inj TECHNIQUE: 2 views of the hip were acquired. COMPARISON: 03/08/2015. FINDINGS: Bones: There is prior right total hip arthroplasty. No gross hardware loosening or failure. Left hip alignment is anatomic. No acute left hip fracture or dislocation. Moderate left hip joint osteoarthr itic changes are seen. No evidence of avascular necrosis of femoral head. No suspicious bony lesions. Soft tissues: No suspicious soft tissue calcifications or masses. IMPRESSION: 1. No acute left hip fracture or dislocation. Left hip joint osteoarthritis. No evidence of avascular necrosis. Prior right total hip arthroplasty. Reviewed by: Gigi Alves MD on 04/07/2024 4:17 PM PDT Approved by: Gigi Alves MD on 04/07/2024 4:17 PM PDT Station ID: [id number]
--- NOTE | 2024-04-07 17:23 | CT Report ---
PROCEDURE: Pelvis WO INDICATIONS: L hip pain p fall TECHNIQUE: Noncontrast 3 mm axial sections acquired through the bony pelvis, with coronal and sagittal reformatt ing. For radiation dose reduction, the following was used: automated exposure control, adjustment of mA and/or kV according to patient size. COMPARISON: Same day x-ray. FINDINGS: Image quality: Excellent. Bones: Mildly displaced fracture of the left greater trochanter. No femoral neck fracture is seen. D iffusely decreased osseous mineralization. Right hip arthroplasty without evidence of constipation. Soft tissues: Mild soft tissue stranding around the bilateral hips. Vascular vascular opacifications . Diverticulosis of the visualized colon. IMPRESSION: 1.Mildly displaced fracture of the left greater trochanter. No femoral neck or other fracture is seen . 2.Right hip arthroplasty without evidence of complication. Reviewed by: Armando Mckeon MD on 04/07/2024 5:21 PM PDT Approved by: Armando Mckeon MD on 04/07/2024 5:21 PM PDT Station ID: [id number]
[2024-04-07] MEDS ORDERED: ONDANSETRON 4 MG/2 ML VIAL IVP PRN (17:33)
[2024-04-07] MEDS ORDERED: oxyCODONE 5 MG TABLET PO PRN (17:33)
--- NOTE | 2024-04-07 18:28 | XRAY Report ---
PROCEDURE: Femur 2+V LT INDICATIONS: hip/leg inj TECHNIQUE: 4 views of the femur were acquired. COMPARISON: None. FINDINGS: Bones: Mildly displaced greater trochanter fracture is better appreciated on same-day CT. No suspic ious bony lesions. Soft tissues: No suspicious soft tissue calcifications or masses. IMPRESSION: Mildly displaced greater trochanter fracture is better appreciated on same-day CT. Reviewed by: Armando Mckeon MD on 04/07/2024 6:27 PM PDT Approved by: Armando Mckeon MD on 04/07/2024 6:27 PM PDT Station ID: [id number]
[2024-04-07] MEDS ORDERED: ENOXAPARIN 100 MG/ML SYRINGE SUBQ SCH (21:00)
[2024-04-07 21:50] LABS: BILIRUBIN,URINE NEGATIVE (NEGATIVE); GLUCOSE, URINE (UA) NEGATIVE (NEGATIVE); KETONES,URINE (UA) TRACE mg/dL (NEGATIVE); LEUKOCYTE ESTERASE, URINE NEGATIVE (NEGATIVE); NITRITE,URINE NEGATIVE (NEGATIVE); OCCULT BLOOD,URINE NEGATIVE (NEGATIVE); PH,URINE 5.5 PH (5.0-7.5); PROTEIN,URINE NEGATIVE (NEGATIVE); UROBILINOGEN,URINE 0.2 (NORMAL) E.U./dL (NORMAL)
[2024-04-07 21:54] LABS: CLARITY,URINE CLEAR (CLEAR)
[2024-04-07] MEDS: ACETAMINOPHEN 500 MG TABLET PO PRN (23:52)
[2024-04-08 05:31] LABS: CALCIUM 8.9 mg/dL (8.5-10.3); CREATININE 0.6 mg/dL (0.6-1.3)
[2024-04-08] MEDS: PANTOPRAZOLE 40 MG TABLET PO SCH (06:37)
--- NOTE | 2024-04-08 08:39 | ED Physician Documentation ---
ED Addendum - Addendum Addendum: 04/08/24 08:38 Patient is boarding in the emergency department pending social work consult for placement due to hip pain from a greater trochanter fracture that is nonoperative. Sodium improved, creatinine kinase improved. Will follow-up with social work later today. No acute changes overnight.
[2024-04-08 12:49] VITALS: BP 149/62; O2SAT 97
--- NOTE | 2024-04-08 14:14 | ED Physician Documentation ---
ED Addendum - Addendum Addendum: 04/08/24 14:20 Social work saw the patient, she is accepted to [facility]. Social work asked if I would write for a bath aide, and the RN, a front wheel walker and PT OT. These orders were given. Recommend they contact her PCP on Wednesday for full orders. Departure - Departure Disposition: 01 Home, Self Care Clinical Impression: Hyponatremia Greater trochanter fracture Qualifiers: Encounter type: initial encounter Fracture type: closed Fracture alignment: nondisplaced Laterality: left Qualified Code(s): S72.115A - Nondisplaced fracture of greater trochanter of left femur, initial encounter for closed fracture Condition: Stable Instructions: ED Fx Lower Ext Follow-Up: Pallavi Munoz MD [Primary Care Provider] - [facility] [Provider Group] Comments: Patient has a left greater trochanter fracture. This is a nonoperative finding. She can be weightbearing as tolerated with a front wheel walker. She may need a wheelchair and two-person assist until evaluated by physical therapy. She can take her usual medications as prescribed for her at home. Your sodium level should be rechecked in 1 week with your doctor. EXAM: [id number] CT/PELWO ([id number]) PROCEDURE: Pelvis WO INDICATIONS: L hip pain p fall TECHNIQUE: Noncontrast 3 mm axial sections acquired through the bony pelvis, with coronal and sagittal reformatting. For radiation dose reduction, the following was used: automated exposure control, adjustment of mA and/or kV according to patient size. COMPARISON: Same day x-ray. FINDINGS: Image quality: Excellent. Bones: Mildly displaced fracture of the left greater trochanter. No femoral neck fracture is seen. Diffusely decreased osseous mineralization. Right hip arthroplasty without evidence of constipation. Soft tissues: Mild soft tissue stranding around the bilateral hips. Vascular vascular opacifications. Diverticulosis of the visualized colon. IMPRESSION: 1.Mildly displaced fracture of the left greater trochanter. No femoral neck or other fracture is seen. 2.Right hip arthroplasty without evidence of complication. Forms: PCP List
== END 2024-04-08 15:04 | disposition home or self-care (01) ==
LOC: ED 14:33
DX: S72.112A Displaced fracture of greater trochanter of left femur, initial encounter for closed fracture (principal); W18.39XA Other fall on same level, initial encounter; R74.8 Abnormal levels of other serum enzymes; I48.91 Unspecified atrial fibrillation; Z79.01 Long term (current) use of anticoagulants
CPT/HCPCS: 36415; 70450; 72125; 72192; 73502; 73552; 80048; 80053; 81003; 82550; 85025; 85610; 96360; 99285; A9270; 81001; 87086

== ENCOUNTER 2024-04-18 12:48 | Outpatient (CLI) | payer MEDICARE, OTHER | END 2024-04-18 12:49 | disposition critical access hospital (66) | LOC: EMS 12:48 | DX: S69.92XA Unspecified injury of left wrist, hand and finger(s), initial encounter (principal); W18.30XA Fall on same level, unspecified, initial encounter; Y92.091 Bathroom in other non-institutional residence as the place of occurrence of the external cause; Z79.01 Long term (current) use of anticoagulants | CPT/HCPCS: A0425; A0427 ==

== ENCOUNTER 2024-04-18 13:14 | Emergency (ER) | payer MEDICARE, OTHER ==
--- NOTE | 2024-04-18 14:04 | ED Physician Documentation ---
PD HPI UPPER EXT INJURY - Stated complaint Stated Complaint: GLF - Chief complaint Chief Complaint: Trauma Ext - History obtained from History obtained from: Patient - Additonal information Additional information: 83-year-old woman with frequent falls on [employer] had a fall today. Mechanical fall and hurting her left wrist. She is sure she did not hit her head. Of note she was here recently with a nonoperative greater trochanter hip fracture and is in assisted living because of that. PD PAST MEDICAL HISTORY - Past Medical History Past Medical History: Yes Cardiovascular: Congestive heart failure, Hypertension, Peripheral Vascular Disease, Atrial fibrillation Respiratory: Asthma Endocrine/Autoimmune: HyPOthyroidism GI: None, Chronic constipation : Frequency HEENT: None Psych: Anxiety Musculoskeletal: Other Derm: Other - Past Surgical History Past Surgical History: Yes General: Colonoscopy Ortho: Hip replacement, Shoulder arthroplasty /[employer]: Hysterectomy HEENT: Tonsil/Adenoidectomy - Present Medications Home Medications: Ambulatory Orders Medication Instructions Recorded Confirmed Furosemide 0.5 - 1 tab PO DAILY 03/02/19 04/08/24 Potassium Chloride 10 meq PO DAILY 03/02/19 04/08/24 Apixaban [Eliquis] 2.5 mg PO BID 01/10/24 04/08/24 Losartan Potassium 25 mg PO DAILY 04/08/24 04/08/24 Metoprolol Succinate [Toprol Xl] 25 mg PO DAILY 04/08/24 04/08/24 HYDROcod/ACETAM 5/325 [Mission 5/325] 1 - 2 tab PO Q6H PRN #10 tablet 04/18/24 - Allergies Allergies/Adverse Reactions: Allergies Allergy/AdvReac Type Severity Reaction Status Date / Time Penicillins Allergy Rash Verified 04/18/24 13:27 - Social History Does the pt smoke?: No Smoking Status: Never smoker Does the pt drink ETOH?: Yes Does the pt have substance abuse?: No - Immunizations Immunizations are current?: Yes PD ED PE NORMAL - Vitals Vital signs reviewed: Yes - General General: Alert and oriented X 3, No acute distress - Neck Neck: Supple, no meningeal sign, No bony TTP - Back Back: No CVA TTP, No spinal TTP - Derm Derm: Normal color, Warm and dry - Extremities Extremities: Other (Obvious deformity of the left wrist consistent with a fracture. The remainder of her extremities are nontender. Normal neurovascular function in the left hand.) - Neuro Neuro: Alert and oriented X 3, Normal speech - Psych Psych: Normal mood, Normal affect Results - Vitals Vitals: Vital Signs - 24 hr 04/18/24 13:20 Temperature 36.5 C Heart Rate 61 Respiratory 15 Rate Blood Pressure 180/83 H O2 Saturation 97 Oxygen O2 Source Room air - Rads (name of study) X-ray of the left wrist demonstrates a mildly displaced impacted distal radius fracture with possible ulnar styloid fracture. Relevant Findings:: Final report received, EMP independent interpretation of test Procedures - Splint (location) - Minor LUE Splint applied by: Physician Type of splint: Fiberglass, Short arm, Volar cock up Other: Patient tolerated well, No complications, Neurovascular intact PD Medical Decision Making - ED course ED course: She presents with an isolated left wrist injury. She does have a fracture but to my does not require her ED reduction. She was placed in a splint. She has been on Eliquis since September and is convinced this is causing her to fall. Discussed with her whether this is the cause, it certainly would make it more dangerous for her to have frequent falls and encouraged follow-up with primary care and cardiology for discussion. Departure - Departure Disposition: Home, Self Care Clinical Impression: Left wrist fracture Qualifiers: Encounter type: initial encounter Fracture type: closed Qualified Code(s): S62.102A - Fracture of unspecified carpal bone, left wrist, initial encounter for closed fracture Condition: Good Record reviewed to determine appropriate education?: Yes Instructions: ED Fx Colles Wrist No Redu Requ Follow-Up: [facility] [Provider Group] - Within 1 week Prescriptions: HYDROcod/ACETAM 5/325 [Mission 5/325] 1 - 2 tab PO Q6H PRN #10 tablet PRN Reason: Pain Comments: Regarding the anticoagulation and frequent falls, please discuss this with your primary care physician and/or your health promotion educator to discuss the risk benefit ratio of continuing with the Eliquis. As far as the wrist fracture goes, keep the splint on and dry and follow-up with the orthopedic office in about a week calling tomorrow for an appointment. The number is on this form. I sent your prescription electronically to the [facility] in [place]. I am prescribing a short course of narcotic pain medication for you. These are potentially dangerous and addictive medications that should be used carefully. These medications may constipate you. Take an aycx-pfg-cngiwou stool softener (docusate) twice daily with plenty of water while taking these medications. If you go 24 hours without a bowel movement, take ptuk-[id number]-[id number] miralax, per package instructions. Do not drink or drive while taking these medications. If you received narcotic or sedating medications while in the emergency department, do not drive for 24 hours. Store this medication in a safe, secure place and out of reach of children. It is a violation of federal law to give or sell this medication to another person or to use in a manner other than prescribed. The ED will not refill narcotic prescriptions, including prescriptions lost or stolen. To dispose of unwanted medications: 1. [facility] provides a drop box for medication in pill form only (no liquids) 8:00 am to 4:30 p.m. Wednesday-Wednesday in the lobby of the [facility], [address] [place] [address]. Empty pills into ziplock bag before disposal. Call [phone] for information. 2.[employer] is a free service available to all [facility] residents. Go to [email or web address] Note that many narcotic pain relievers also contain Tylenol/acetaminophen. Please ensure that your total dose of acetaminophen from all sources does not exceed 3 g (3000 mg) per day. Forms: PCP List
--- NOTE | 2024-04-18 14:52 | XRAY Report ---
PROCEDURE: Wrist 3+V LT INDICATIONS: wrist inj TECHNIQUE: 3 views of the wrist were acquired. COMPARISON: None. FINDINGS: Bones: Mildly impacted and displaced fracture of the distal radius. Moderate degenerative changes, p articularly at the base of the thumb. Minimally displaced ulnar styloid avulsion fragment also presen t. Soft tissues: Scattered periarticular ossifications and chondrocalcinosis. Traumatic mild positive u lnar variance. IMPRESSION: Mildly displaced and impacted distal radius fracture. Moderate degenerative changes. Suspected minimally displaced ulnar styloid fracture fragment. Reviewed by: Jose C Rivera MD on 04/18/2024 2:51 PM PDT Approved by: Jose C Rivera MD on 04/18/2024 2:51 PM PDT Station ID: [id number]
[2024-04-18 15:49] VITALS: BP 164/87; O2SAT 99
== END 2024-04-18 15:15 | disposition home or self-care (01) ==
LOC: EDUNIT# → ED 13:14
DX: S52.502A Unspecified fracture of the lower end of left radius, initial encounter for closed fracture (principal); W19.XXXA Unspecified fall, initial encounter
CPT/HCPCS: 29125; 99283; 99284

== ENCOUNTER 2024-04-20 12:36 | Outpatient (CLI) | payer MEDICARE, OTHER | END 2024-04-20 12:37 | disposition short-term general hospital (02) | LOC: EMS 12:36 | DX: I48.91 Unspecified atrial fibrillation (principal); R55 Syncope and collapse | CPT/HCPCS: A0425; A0427 ==

== ENCOUNTER 2024-04-25 12:14 | Outpatient (CLI) | payer MEDICARE, OTHER ==
--- NOTE | 2024-04-25 17:33 | XRAY Report ---
PROCEDURE: Hip w/Pelvis 2-3V LT INDICATIONS: L HIP PAIN, L WRIST PAIN TECHNIQUE: 2 views of each hip were acquired. COMPARISON: 04/07/2024. FINDINGS: Bones: No acute fractures or dislocations. Stable postsurgical changes of right total hip arthroplas ty without evidence for hardware failure or loosening. Stable postsurgical alignment. Left hip is als o stable in appearance without acute or subacute fractures identified. Stable moderate degenerative c hanges of the left hip. No flattening of the left femoral head. No suspicious bony lesions. Soft tissues: No suspicious soft tissue calcifications or masses. IMPRESSION: Bilateral hip without acute osseous abnormalities. Stable appearance of moderate left hip osteoarthrosis. Stable postsurgical changes of right total hip arthroplasty without evidence for hardware complicatio n. Reviewed by: Breezy Malik MD on 04/25/2024 5:31 PM PDT Approved by: Breezy Malik MD on 04/25/2024 5:31 PM PDT Station ID: [id number]
--- NOTE | 2024-04-25 17:39 | XRAY Report ---
PROCEDURE: Wrist 3+V LT INDICATIONS: L HIP PAIN, L WRIST PAIN TECHNIQUE: 3 views of the wrist were acquired. COMPARISON: 04/18/2024. FINDINGS: Bones: Overlying cast material limits fine bony detail. Redemonstration of mildly displaced and impa cted distal radial fracture. Diffuse decreased osseous mineralization.. No suspicious bony lesions. Soft tissues: No suspicious soft tissue calcifications or masses. IMPRESSION: Similar appearance of mildly displaced and impacted distal radial fracture. Possible ulnar styloid fr acture is not well appreciated. Reviewed by: Armando Mckeon MD on 04/25/2024 4:37 PM RAIMUNDO Approved by: Armando Mckeon MD on 04/25/2024 4:37 PM RAIMUNDO Station ID: [id number]
== END 2024-04-25 12:15 | disposition home or self-care (01) ==
LOC: DI 12:14
PROVIDERS: ATTEND Orthopaedic Surgery
DX: M16.12 Unilateral primary osteoarthritis, left hip (principal); Z96.641 Presence of right artificial hip joint; S52.502D Unspecified fracture of the lower end of left radius, subsequent encounter for closed fracture with routine healing

== ENCOUNTER 2024-05-18 13:00 | Outpatient (CLI) | payer MEDICARE, OTHER ==
[2024-05-18 13:28] LABS: CALCIUM 9.9 mg/dL (8.5-10.3); CREATININE 0.8 mg/dL (0.6-1.3); POTASSIUM 3.9 mmol/L (3.5-4.5)
== END 2024-05-18 13:01 | disposition home or self-care (01) ==
LOC: LAB 13:00
PROVIDERS: ATTEND Nurse Practitioner
DX: I51.89 Other ill-defined heart diseases (principal)
CPT/HCPCS: 36415; 80048

== ENCOUNTER 2024-05-23 12:32 | Outpatient (CLI) | payer MEDICARE, OTHER ==
--- NOTE | 2024-05-24 13:01 | XRAY Report ---
PROCEDURE: Hip w/Pelvis 2-3V LT INDICATIONS: NONDISPLACED FX OF GREATER TROCHANTERIC OF L FEMUR TECHNIQUE: 2 views of the hip were acquired. COMPARISON: 04/25/2024 FINDINGS: Bones: No fractures or dislocations. No suspicious bony lesions. Generalized decreased osseous mine ralization present. Right total hip prosthesis in good position. No evidence of hardware failure or l oosening. Moderate left hip joint space narrowing. No remodeling of the femoral head. Soft tissues: No suspicious soft tissue calcifications or masses. IMPRESSION: Moderate left hip osteoarthritis. Total right hip arthroplasty, unchanged Osteopenia Reviewed by: Krunal Mcneil MD on 05/24/2024 12:00 PM RAIMUNDO Approved by: Krunal Mcneil MD on 05/24/2024 12:00 PM AKROSE Station ID: [id number]
--- NOTE | 2024-05-24 16:39 | XRAY Report ---
PROCEDURE: Wrist 3+V LT INDICATIONS: COLLES FX OF LEFT RADIUS TECHNIQUE: 3 views of the wrist were acquired. COMPARISON: 04/25/2024 FINDINGS: Bones: Transverse fracture to the distal radius now shows slight impaction with dorsal angulation. P ersistent fracture line, sclerosis and periosteal reaction. Generalized decreased osseous mineralizat ion present. Ulnar styloid fracture line shows remodeling. First carpometacarpal and intercarpal arth ritic changes. Soft tissues: No suspicious soft tissue calcifications or masses. IMPRESSION: Distal radial fracture shows impaction with dorsal angulation, new from the prior exam. Ulnar styloid fracture. Osteopenia Reviewed by: Krunal Mcneil MD on 05/24/2024 3:38 PM AKDT Approved by: Krunal Mcneil MD on 05/24/2024 3:38 PM AKDT Station ID: [id number]
== END 2024-05-23 12:33 | disposition home or self-care (01) ==
LOC: DI 12:32
PROVIDERS: ATTEND Orthopaedic Surgery
DX: M16.12 Unilateral primary osteoarthritis, left hip (principal); M85.88 Other specified disorders of bone density and structure, other site; Z96.641 Presence of right artificial hip joint; S52.532A Colles' fracture of left radius, initial encounter for closed fracture; S52.612A Displaced fracture of left ulna styloid process, initial encounter for closed fracture